=== PATIENT | male | born 1935 | race Caucasian/White ===

== ENCOUNTER 2017-02-21 18:44 | Emergency (ER) | payer SELFPAY ==
[2017-02-21 18:56] VITALS: BP 144/92; PULSE 69; RESP 15; TEMP 98.2; O2SAT 100
== END 2017-02-21 21:20 | disposition left against medical advice (07) ==
LOC: C.ER 18:44
DX: Z02.89 Encounter for other administrative examinations (principal); R13.10 Dysphagia, unspecified